=== PATIENT | male | born 1980 | race Caucasian/White ===

== ENCOUNTER 2021-05-23 22:33 | Inpatient (IN) | payer BC, MEDICAID, SELFPAY ==
[~2021-05-23] VITALS: Ht 180.3 cm; Wt 72.3 kg
[2021-05-23] MEDS ORDERED: XANA2TAB2 PO ×2 (22:43)
[2021-05-23] MEDS ORDERED: OMEP-173 PO (22:43)
[2021-05-24] MEDS ORDERED: LORazepam 2 MG TAB PO ONE (00:45)
[2021-05-24 00:52] LABS: HEMATOCRIT 42.3 % (42.0-52.0); HEMOGLOBIN 14.5 g/dl (13.5-17.5); MEAN CORPUSCULAR HEMOGLOBIN 31.6 pg (27.0-33.0); MEAN CORPUSCULAR HGB CONC 34.3 g/dl (32.0-36.5); MEAN CORPUSCULAR VOLUME 92.2 fl (80.0-96.0); PLATELET COUNT, AUTOMATED 437 10^3/uL (150-450); RED BLOOD COUNT 4.59 10^6/uL (4.30-6.10); WHITE BLOOD COUNT 16.2 10^3/uL (4.0-10.0)
[2021-05-24 01:10] LABS: ACETAMINOPHEN LEVEL < 2.0 UG/ML (10.0-30.0); ALBUMIN 4.2 GM/DL (3.2-5.2); ALT/SGPT 37 U/L (12-78); AMPHETAMINES LEVEL URINE NEGATIVE (NEGATIVE); BARBITURATES URINE NEGATIVE (NEGATIVE); BENZODIAZEPINES URINE NEGATIVE (NEGATIVE); BILIRUBIN,DIRECT 0.2 MG/DL (0.0-0.2); BILIRUBIN,TOTAL 0.4 MG/DL (0.2-1.0); BLOOD UREA NITROGEN 12 MG/DL (7-18); CANNABINOIDS URINE POSITIVE (NEGATIVE); CARBON DIOXIDE LEVEL 26 MEQ/L (21-32); CHLORIDE LEVEL 107 MEQ/L (98-107); COCAINE METABOLITE URINE NEGATIVE (NEGATIVE); CREATININE FOR GFR 0.94 MG/DL (0.70-1.30); ETHYL ALCOHOL (ETHANOL) < 0.003 % (0.000-0.010); GLOMERULAR FILTRATION RATE > 60.0 (>60); GLUCOSE, FASTING 98 MG/DL (70-100); METHADONE URINE NEGATIVE (NEGATIVE); OPIATES URINE NEGATIVE (NEGATIVE); PHENCYCLIDINE URINE NEGATIVE (NEGATIVE); POTASSIUM SERUM 4.3 MEQ/L (3.5-5.1); SALICYLATE LEVEL 3.5 MG/DL (5.0-30.0); SODIUM LEVEL 138 MEQ/L (136-145); TOTAL PROTEIN 7.8 GM/DL (6.4-8.2)
[2021-05-24] MEDS ORDERED: diphenhydrAMINE 50MG/ML VIAL (J1200) As Ordered ONE (01:20)
[2021-05-24] MEDS ORDERED: HALOPERIDOL 5MG/ML VIAL (J1630 PER 1) IM ONE (01:20)
[2021-05-24] MEDS ORDERED: diphenhydrAMINE 50MG/ML VIAL (J1200) IM ONE (01:20)
[2021-05-24] MEDS ORDERED: HALOPERIDOL 5MG/ML VIAL (J1630 PER 1) As Ordered ONE (01:20)
[2021-05-24] MEDS ORDERED: LORazepam 2 MG/ML VIAL As Ordered ONE (01:21)
[2021-05-24] MEDS ORDERED: LORazepam 2 MG/ML VIAL IM STA (01:37)
[2021-05-24 09:29] LABS: RSV AMPLIFICATION NEGATIVE (NEGATIVE)
[2021-05-24] MEDS ORDERED: traZODone 50 MG TAB PO PRN (15:10)
[2021-05-24] MEDS ORDERED: MOM 30ML SUSPENSION UDC PO PRN (15:10)
[2021-05-24] MEDS ORDERED: MAALOX 30 ML SUSP *UDC PO PRN (15:10)
[2021-05-24] MEDS ORDERED: ACETAMINOPHEN TAB 650MG DOSE (2X325MG) PO PRN (15:10)
[2021-05-24 18:05] VITALS: BP 141/83
[2021-05-25 06:45] VITALS: BP 132/76
[2021-05-25 19:54] VITALS: BP 160/90
[2021-05-25] MEDS: DIVALPROEX 250 MG TAB PO SCH (21:00)
[2021-05-26 05:40] VITALS: BP 102/71
[2021-05-26] MEDS: DIVALPROEX 250 MG TAB PO SCH (09:00)
[2021-05-26 21:00] VITALS: BP 143/87
[2021-05-27 06:35] VITALS: BP 128/82
[2021-05-27 16:30] VITALS: BP 137/77
[2021-05-28 06:10] VITALS: BP 140/84
[2021-05-28] MEDS: OLANZapine 5 MG TAB PO SCH ×2 (09:00→21:00)
[2021-05-28] MEDS ORDERED: HALOPERIDOL 5MG/ML VIAL (J1630 PER 1) IM STA (11:48)
[2021-05-28] MEDS ORDERED: diphenhydrAMINE 50MG/ML VIAL (J1200) IM STA (11:48)
[2021-05-28] MEDS ORDERED: LORazepam 2 MG/ML VIAL IM STA (11:48)
[2021-05-28] MEDS ORDERED: LORazepam 2 MG TAB PO ONE (11:55)
[2021-05-28] MEDS ORDERED: diphenhydrAMINE 50MG CAP PO ONE (11:55)
[2021-05-29 06:24] VITALS: BP 152/85
[2021-05-29] MEDS: OLANZapine 5 MG TAB PO SCH (08:26)
[2021-05-29] MEDS ORDERED: OLAN1TAB16 PO (09:15)
[2021-05-29] MEDS ORDERED: OMEP40CA4 PO (19:04)
[2021-05-30] MEDS ORDERED: OLAN1TAB16 PO (00:26)
== END 2021-05-29 12:34 | disposition home or self-care (01) | DRG 753 ==
LOC: M ED 22:33 → M ED INP 05-24 15:09 → M PSY 05-24 17:52
PROVIDERS: ADMIT Psychiatry & Neurology Psychiatry; ATTEND Psychiatry & Neurology Psychiatry
DX: F31.9 Bipolar disorder, unspecified (principal); F60.89 Other specific personality disorders; F17.210 Nicotine dependence, cigarettes, uncomplicated; F12.10 Cannabis abuse, uncomplicated; F63.9 Impulse disorder, unspecified; K21.9 Gastro-esophageal reflux disease without esophagitis; Z79.899 Other long term (current) drug therapy; Z88.1 Allergy status to other antibiotic agents; Z91.040 Latex allergy status

== ENCOUNTER 2021-05-29 18:53 | Emergency (ER) | payer MEDICAID ==
[~2021-05-29] VITALS: Ht 180.3 cm; Wt 78.1 kg
[~2021-05-29 18:53] MED LIST: OLAN1TAB16 PO; OMEP-173 PO; XANA2TAB2 PO
[2021-05-29] MEDS ORDERED: OMEP40CA4 PO (19:04)
[2021-05-29 22:07] LABS: HEMATOCRIT 41.1 % (42.0-52.0); HEMOGLOBIN 14.1 g/dl (13.5-17.5); MEAN CORPUSCULAR HGB CONC 34.3 g/dl (32.0-36.5); MEAN CORPUSCULAR VOLUME 93.2 fl (80.0-96.0); PLATELET COUNT, AUTOMATED 406 10^3/uL (150-450); RED BLOOD COUNT 4.41 10^6/uL (4.30-6.10); WHITE BLOOD COUNT 15.1 10^3/uL (4.0-10.0)
[2021-05-29 22:22] LABS: ACETAMINOPHEN LEVEL < 2.0 UG/ML (10.0-30.0); ALBUMIN 3.8 GM/DL (3.2-5.2); ALT/SGPT 48 U/L (12-78); BILIRUBIN,DIRECT < 0.1 MG/DL (0.0-0.2); BILIRUBIN,TOTAL 0.2 MG/DL (0.2-1.0); BLOOD UREA NITROGEN 19 MG/DL (7-18); CALCIUM LEVEL 8.7 MG/DL (8.5-10.1); CARBON DIOXIDE LEVEL 26 MEQ/L (21-32); CHLORIDE LEVEL 108 MEQ/L (98-107); CREATININE FOR GFR 1.13 MG/DL (0.70-1.30); ETHYL ALCOHOL (ETHANOL) 0.003 % (0.000-0.010); GLOMERULAR FILTRATION RATE > 60.0 (>60); GLUCOSE, FASTING 110 MG/DL (70-100); POTASSIUM SERUM 4.5 MEQ/L (3.5-5.1); SALICYLATE LEVEL 2.2 MG/DL (5.0-30.0); SODIUM LEVEL 140 MEQ/L (136-145); TOTAL PROTEIN 7.1 GM/DL (6.4-8.2)
[2021-05-29 22:27] LABS: RSV AMPLIFICATION NEGATIVE (NEGATIVE)
[2021-05-30] MEDS ORDERED: OLAN1TAB16 PO (00:26)
[2021-05-30] MEDS ORDERED: HOME MED LIST COMPLETE! XX SCH (00:30)
[2021-05-30 00:41] VITALS: BP 127/73
== END 2021-05-30 00:54 | disposition home or self-care (01) ==
LOC: M ED 18:53
DX: R45.4 Irritability and anger (principal); Z59.00 Homelessness unspecified; F20.9 Schizophrenia, unspecified; K21.9 Gastro-esophageal reflux disease without esophagitis; Z91.040 Latex allergy status; Z79.899 Other long term (current) drug therapy